=== PATIENT | female | born 1980 | race Caucasian/White ===

== ENCOUNTER 2021-11-22 15:39 | Emergency (ER) | payer OTHER, SELFPAY ==
--- NOTE | 2021-11-22 15:44 | ED.URI ---
HPI - URI/Sore Throat General Chief Complaint: Upper Respiratory Infection Stated Complaint: Cough Time Seen by Provider: 11/22/21 15:44 Source: patient and RN notes reviewed History of Present Illness HPI Narrative: Patient is a 41-year-old female who presents the urgent care with complaints of dry cough for the last 2 weeks. Patient states she is now having wheezing when she lays down at night and some chest tightness. Patient has been taking an allergy pill for the last several days. Denies of any nausea, vomiting, shortness of breath. States that she has had low-grade fevers. No other acute complaints. No acute distress noted. Patient aware of the plan of care. Some parts of this dictation were generated by voice recognition software and may contain typographical and/or grammatical inaccuracies. Related Data Allergies Allergy/AdvReac Type Severity Reaction Status Date / Time No Known Allergies Allergy Unverified 03/05/15 09:11 Review of Systems Review of Systems: CONSTITUTIONAL: reports of low-grade fever EYES: Denies visual changes, redness, or discharge. ENT: Denies rhinorrhea, congestion, sore throat, or otalgia. CARDIOVASCULAR: Denies chest pain, palpitations, or edema. RESPIRATORY: Reports of dry cough without dyspnea. Reports of wheezing at night GASTROINTESTINAL: Denies abdominal pain, nausea, vomiting, or diarrhea. GENITOURINARY: Denies dysuria or hematuria. SKIN: Denies rash or itching. MUSCULOSKELETAL: Denies back pain, joint pain, or myalgia. NEUROLOGIC: Denies headache, numbness, or weakness. All other systems reviewed are negative, except as documented in HPI. PMFSH Comments At the time of my signature, I reviewed and agree with the nursing past medical, surgical, social, and family history. There is no relevant family history pertinent to the patient complaint. Exam Narrative: GENERAL: This is a well-nourished, well-developed patient, in no apparent distress. HEAD: normocephalic, atraumatic. EYES: PERRL. Sclera clear/white. Vision is grossly intact. EARS: External ears normal, auditory canals clear and without drainage, injected erythemic left TM. Right TM normal without perforation. Hearing grossly intact. NOSE: External nose normal with no obvious nasal discharge, nares without redness, no rhinorrhea. THROAT: Mucous membranes moist, posterior pharynx clear. Moderate postnasal drainage NECK: Neck supple, non-tender without lymphadenopathy CARDIOVASCULAR: Regular rate and rhythm without murmurs, gallops, or rubs. RESPIRATORY: Expiratory wheezes throughout SKIN: warm, intact with no suspicious lesions or rash, good texture and turgor. NEURO: awake, alert, and oriented to person, place and time. There were no obvious focal neurologic abnormalities. EXTREMITIES: No clubbing, cyanosis, or edema. Course Course Level of Care: Express Care Visit Vital Signs Vital signs: Vital Signs Temperature 100.7 F H 11/22/21 15:50 Pulse Rate 100 11/22/21 15:50 Respiratory Rate 16 11/22/21 15:50 Blood Pressure 180/99 H 11/22/21 15:50 Pulse Oximetry 100 11/22/21 15:50 Temperature 100.7 F H 11/22/21 15:50 Pulse Rate 100 11/22/21 15:50 Respiratory Rate 16 11/22/21 15:50 Blood Pressure 180/99 H 11/22/21 15:50 Pulse Oximetry 100 11/22/21 15:50 Reviewed-patient is informed that they may have pre-hypertension or hypertension based on a blood pressure reading in the department. I recommend the patient call the primary care provider listed on their discharge instructions or a physician of their choice this week to arrange follow-up for further evaluation of possible pre-hypertension or hypertension. MDM - URI/Sore Throat MDM Narrative Medical decision making narrative: Advised the patient to complete the steroid regimen as prescribed. Complete the antibiotic regimen as prescribed. Make sure to eat and drink with the medication. Use the inhaler prior to bedtime or as needed for coughing fit
[2021-11-22 15:50] VITALS: BP 180/99; PULSE 100; RESP 16; TEMP 38.2; O2SAT 100
== END 2021-11-22 16:34 | disposition home or self-care (01) ==
PROVIDERS: Emergency Provider Nurse Practitioner Family
DX: J40 Bronchitis, not specified as acute or chronic (principal); H66.92 Otitis media, unspecified, left ear
CPT/HCPCS: 99203; G0463

== ENCOUNTER 2022-08-06 09:49 | Outpatient (CLI) | payer OTHER, SELFPAY | END 2022-08-06 09:50 | disposition home or self-care (01) | LOC: ANHBWCAUD 09:50 | DX: H93.A1 Pulsatile tinnitus, right ear (principal) | CPT/HCPCS: 92557; 92567 ==

== ENCOUNTER 2022-10-10 16:19 | Outpatient (CLI) | payer OTHER, SELFPAY ==
--- NOTE | ~2022-10-10 | MM_ITS ---
EXAMINATION: MM screening [facility] w [facility]ennedy HISTORY: Screening mammogram TECHNIQUE: Craniocaudal and mediolateral oblique 3-D tomosynthesis images were obtained and synthetic 2-D images were generated. CAD analysis was submitted and interpreted. COMPARISON: No prior mammogram is available for comparison at this institution. BREAST PARENCHYMAL COMPOSITION: There are scattered areas of fibroglandular density. FINDINGS: There is no evidence of suspicious mass, calcification, or architectural distortion to sugg est malignancy in either breast. There has been no suspicious interval change. IMPRESSION: 1. No mammographic evidence of malignancy. 2. Recommend routine screening mammography in one year. BI-RADS Category 1: Negative Reviewed, dictated and finalized at [facility]
== END 2022-10-10 16:20 | disposition home or self-care (01) ==
PROVIDERS: Visit Provider Nurse Practitioner Obstetrics & Gynecology
DX: Z12.31 Encounter for screening mammogram for malignant neoplasm of breast (principal)
CPT/HCPCS: 77063; 77067